=== PATIENT | female | born 1950 | race Caucasian/White ===

== ENCOUNTER → 2017-05-30 10:34 | Outpatient (CLI) | payer OTHER | END | disposition home or self-care (01) | LOC: D.MRI 10:34 | DX: M25.562 Pain in left knee (principal) ==

== ENCOUNTER → 2019-11-29 08:31 | Outpatient (CLI) | payer OTHER | END | disposition home or self-care (01) | LOC: D.HCCECHO 08:31 | PROVIDERS: ATTEND Internal Medicine Cardiovascular Disease | DX: I25.10 Atherosclerotic heart disease of native coronary artery without angina pectoris (principal); I20.9 Angina pectoris, unspecified ==

== ENCOUNTER 2019-12-12 06:56 | Day surgery (SDC) | payer OTHER ==
[~2019-12-12] VITALS: Ht 170.2 cm; Wt 106.9 kg
--- NOTE | ~2019-12-12 | HEMODYNAMI ---
PATIENT:MERCEDES JORDAN MEDICAL RECORD: [id number] : 50 LOCATION:[facility] ADMISSION DATE: 12/12/19 Generatedon:12/12/20199:04 Patient name: MERCEDES JORDAN Patient #: [id number] SSN: [id number] : 1950 Date of study: 12/12/2019 Page: Of Hemodynamic Procedure Report Patient Data Patient Demographics Procedure consent was obtained First Name: MERCEDES Gender: Female Last Name: NIKKI : 1950 [facility] Initial: ANTOINE Age: 69 year(s) Patient #: [id number] Race: SSN: [id number] Additional ID: [id number] Contact details Address: [address] [place] [address] State: [place] City: [place] Zip code: [address] Past Medical History Allergies Allergen Reaction Date Comments Reported Other allergy 12/12/2019 NORCO, OXYBUTYNIN Admission Admission Data Admission Date: 12/12/2019 Admission Time: 6:56 Arrival Date: 12/12/2019 Arrival Time: 0:00 Admit Source: Other Insurance Payor: Private health insurance HIC #: [id number] Height (in.): 67 BSA: 2.17 (m2) Height (cm.): 170.18 BMI: 36.96 (kg/m2) Weight (lbs.): 236 Weight (kg.): 107.05 Lab Results Lab Result Date: 12/12/2019 Lab Result Time: 0:00 Biochemistry Name Units Result Min Max BUN mg/dl 36 --(----)-* 7 18 eGFR ml/min 43 *-(----)-- 90 120 NONAFRICAN CBC Name Units Result Min Max Hematocrit % 51.8 --(---*)-- 42 54 Hemoglobin g/dl 17.4 --(---*)-- 13.5 17.5 Procedure Procedure Types Cath Procedure Diagnostic Procedure LHC LHC w/Coronaries Sedation Charges Moderate Sedation up to 15 minutes Procedure Description Procedure Date Procedure Date: 12/12/2019 Procedure Start Time: 8:51 Procedure End Time: 9:03 Procedure Staff Name Function Malcolm Avila MD Performing Physician Elieser Feliz RN Nurse Ruth Hernandez RT Scrub Gabriela Mathur RT Monitor Procedure Data Cath Procedure Fluoroscopy Diagnostic fluoroscopy Total fluoroscopy Time: 3.1 time: 3.1 min min Diagnostic fluoroscopy Total fluoroscopy dose: 759 dose: 759 mGy mGy Contrast Material Contrast Material Type Amount (ml) Isovue 370 57 Entry Location Entry Primary Successful Side Size Upsize Upsize Entry Closure Polanco ccessful Closure Location (Fr) 1 (Fr) 2 (Fr) Remarks Device Remarks Radial Right 6 Fr Mechanical artery Short Compression Estimated blood loss: 5 ml Diagnostic catheters Device Type Used For End Catheter Placement DIAGNOSTIC Byron 110cm 5 Procedure Fr catheter ([id number]) Procedure Complications No complications Procedure Medications Medication Administration Route Dosage Oxygen etCO2 Nasal cannula 2 l/min Lidocaine 2% added to field 20 Heparin Flush Bag added to field 2 bags (1000units/500ml NS) 0.9% NaCl I.V. 100 ml/hr Zofran I.V. 4 mg Versed I.V. 2 mg Fentanyl I.V. 50 mcg Radial Cocktail I.A. 1 syringe (Verapamil 2mg/Nitro 400mcg/Heparin 1500units) Versed I.V. 1 mg Fentanyl I.V. 50 mcg Hemodynamics Rest BSA: 2.17 (m2) HGB: 17.4 (g/dl) O2 Consumption: Estimated: 220.6 (ml/min) O2 Con sumption indexed: Estimated:101.66 (ml/min/m) Heart Rate: 94 (bpm) Pressure Samples Time Site Value (mmHg) Purpose Heart Use Rate(bpm) 8:53 LV 149/-10,1 Snapshot 96 Gradients Valve Time Site Site Mean SEP/DFP Peak To Heart Use 1 2 (mmHg) (sec/min) Peak Rate (mmHg) (bpm) Aortic 8:54 LV AO 97 Snapshots Pre Cath Intra NCS Post Cath Vital Signs Time Heart Resp SPO2 etCO2 NIBP (mmHg) Rhythm Pain Sedation Rate (ipm) (%) (mmHg) Status Level (bpm) 8:42:48 93 16 94 26.9 169/99(121) NSR 0 (11) 10(A) , No pain 8:47:08 87 15 93 0 111/73(82) NSR 0 (11) 9(A) , No pain 8:52:51 92 13 94 0 155/95(128) NSR 0 (11) 9(A) , No pain 9:58:45 95 17 95 36.6 135/83(110) NSR 0 (11) 10(A) , No pain 9:03:09 98 9 90 46.3 149/86(110) NSR 0 (11) 9(A) , No pain Medications Time Medication Route Dose Verified Delivered Reason Notes Effectiveness by by 8:43:57 Oxygen etCO2 2 l/min Malcolm Buffie used for Nasal Austin Feliz RN procedure cannula 8:44:06 Lidocaine 2% added 20ml Malcolm Malcolm for local to vial Austin Avila MD anesthetic field 8:44:13 Heparin Flush added 2 bags Malcolm Malcolm used for Bag to Austin Avila MD procedure (1000units/500ml field NS) 8:44:22 0.9% NaCl I.V. 100 Malcolm Buffie Per ml/hr Austin Feliz RN physician 8:44:34 Zofran I.V. 4 mg Malcolm Buffie Per Austin Feliz RN physician 8:48:14 Versed I.V. 2 mg Malcolm Buffie for sedation Austin Feliz RN 8:48:21 Fentanyl I.V. 50 mcg Malcolm Buffie for sedation Austin Feliz RN 8:52:36 Radial Cocktail I.A. 1 Malcolm Malcolm for (Verapamil syringe Austin Avila MD vasodilation 2mg/Nitro 400mcg/Heparin 1500units) 8:52:41 Versed I.V. 1 mg Malcolm Malcolm for sedation Austin Avila MD 8:52:45 Fentanyl I.V. 50 mcg Malcolm Malcolm for sedation Austin Avila MD Procedure Log Time Note 8:04:23 Arrival Date: 12/12/2019 12:00:00 AM 8:04:24 Admit Source: Other 8:05:05 Insurance Payor : Private health insurance 8:05:15 Informed consent obtained and on chart 8:05:37 Patient Height : 67 inches 8:05:45 Patient Weight : 236 lbs 8:08:43 Diagnostic Cath Status : Elective 8:08:55 Procedure Status Elective Heart Cath (OP). 8:08:58 Time tracking: Regular hours (M-F 7:00 - 5:00) 8:09:03 Plan of Care:Hemodynamics will remain stable., Cardiac rhythm will remain stable., Comfort level will be maintained., Respiratory function will remain adequate., Patient/ family verbilizes understanding of procedure., Procedure tolerated without complication., Recovers from procedure without complications.. 8:09:11 H&P Date Dictated: 12/05/2019 Within 30 days and on chart.. 8:09:13 Pre-procedure instructions explained to patient. 8:09:13 Pre-op teaching completed and patient verbalized understanding. 8:09:15 Family unavailable. 8:09:17 Patient NPO since Midnight. 8:09:43 Patient allergic to Other allergyNORCO, OXYBUTYNIN 8:09:55 Stress Test: yes; abnormal INFERIOR 8:09:57 Alarms reviewed by R. N. 8:09:58 Sharps counted by scrub and verified by R.N. 8:12:28 Lab Result : Hemoglobin 17.4 g/dl 8:12:28 Lab Result : Hematocrit 51.8 % 8:18:38 Elieser Feliz RN sent for patient. Start room use. 8:23:41 ACC Patient presents with Stable Angina CCS Anginal Class 2--Slight limitation of ordinary activity. 8:23:48 Patient received from Pre/Post Procedure Room to CCL 2 Alert and oriented. Tansferred to table in Supine position. 8:23:52 Warm blankets applied, and brianna hugger turned on for patient comfort. 8:23:53 Correct patient and procedure confirmed by team. 8:23:54 ECG and BP/O2 sat monitors applied to patient. 8:23:57 Is the patient allergic to Iodine/contrast media? No. 8:24:22 Lab results completed and on chart. 8:40:48 Lab Result : eGFR NONAFRICAN 43 ml/min 8:40:48 Lab Result : BUN 36 mg/dl 8:41:20 Vital chart was started 8:42:09 Baseline sample Acquired. 8:42:20 Rhythm: sinus tachycardia 8:42:45 Full Disclosure recording started 8:42:53 Was the patient premedicated? No 8:42:54 Is patient on blood thinner?No 8:42:55 Vital chart was stopped 8:43:10 Patient diabetic? No. 8:43:13 Patient not . Patient is over age 55. 8:43:15 ----Pre-sedation anethsthesia assessment.---- 8:43:18 Previous problem with sedation/anesthesia? No ? 8:43:19 Snore? Yes 8:43:21 Sleep apnea? No 8:43:22 Deviated septum? No 8:43:24 Opens mouth fully? Yes 8:43:25 Sticks out tongue? Yes 8:43:27 Airway obstruction? No ? 8:43:28 Dentures? No ? 8:43:31 Pre procedure: right dorsailis pedis pulse 2+ Normal; easily identifiable; not easily obliterated 8:43:35 Modified Austin's test Ulnar < 7 seconds 8:43:38 Vital chart was started 8:43:40 Patient pain scale 0/10 ?. 8:43:45 IV patent on arrival in left hand with 0.9% NaCl at O. 8:43:51 Right Radial & Right Groin area was prepped with chlora-prep and draped in sterile fashion 8:43:54 Use device set Radial Dx or PCI 8:43:56 ACIST Syringe (29729) opened to sterile field. 8:43:57 Oxygen 2 l/min etCO2 Nasal cannula was administered by Elieser Feliz RN; used for procedure; Verbal order read back and verified. 8:43:57 Medline Cath Pack ([id number]) opened to sterile field. 8:43:57 Bag Decanter (2002) opened to sterile field. 8:43:58 ACIST Hand Control (13597) opened to sterile field. 8:43:58 ACIST Manifold (85508) opened to sterile field. 8:44:01 MBrace Wrist Support ([id number]) opened to sterile field. 8:44:01 NEEDLE Cook 21G 4cm Radial ([id number]) opened to sterile field. 8:44:03 EMERALD Guide Wire (502-973) opened to sterile field. 8:44:04 SHEATH 6FR RAIN (3642894) opened to sterile field. 8:44:06 Lidocaine 2% 20ml vial added to field was administered by Malcolm Avila MD; for local anesthetic; Verbal order read back and verified. 8:44:13 Heparin Flush Bag (1000units/500ml NS) 2 bags added to field was administered by Malcolm Avila MD; used for procedure; Verbal order read back and verified. 8:44:22 0.9% NaCl 100 ml/hr I.V. was administered by Elieser Feliz RN; Per physician; Verbal order read back and verified. 8:44:34 Zofran 4 mg I.V. was administered by Elieser Feliz RN; Per physician; Verbal order read back and verified. 8:46:43 Vital chart was stopped 8:47:51 --------ALL STOP TIME OUT------ 8:47:52 Final Timeout: patient, procedure, and site verified with staff and physician. All members of the team are in agreement. 8:47:54 Right Radial & Right Groin site verified by team. 8:47:58 Fire Safety Assessment: A--An alcohol-based skin anteseptic being used preoperatively., C--Open oxygen or nitrous oxide is being used., D--An ESU, laser, or fiber-optic light is being used. 8:48:03 Physical assessment completed. ASA score P 2 - A patient with mild systemic disease as per Malcolm Avila MD. 8:48:07 3b) 30-44 Moderately reduced kidney function. 8:48:10 Maximum allowable contrast dose (3.7 X eGFR X 0.75)119 ml. 8:48:14 Versed 2 mg I.V. was administered by Elieser Feliz RN; for sedation; Verbal order read back and verified. 8:48:14 Sedation plan: IV Moderate Sedation Medication:Versed, Fentanyl 8:48:21 Fentanyl 50 mcg I.V. was administered by Elieser Feliz RN; for sedation; Verbal order read back and verified. 8:48:45 Vital chart was started 8:50:21 Procedure started. 8:51:35 Local anesthetic to right radial artery with Lidocaine 2% by Malcolm Avila MD.INITIAL ACCESS ONLY 8:52:00 A 6 Fr Short sheath was inserted into the Right Radial artery 8:52:36 Radial Cocktail (Verapamil 2mg/Nitro 400mcg/Heparin 1500units) 1 syringe I.A. was administered by Malcolm Avila MD; for vasodilation; Verbal order read back and verified. 8:52:41 Versed 1 mg I.V. was administered by Malcolm Avila MD; for sedation; Verbal order read back and verified. 8:52:45 Fentanyl 50 mcg I.V. was administered by Malcolm Avila MD; for sedation; Verbal order read back and verified. 8:52:51 A DIAGNOSTIC Byron 110cm 5 Fr catheter ([id number]) was advanced over the wire and used for Procedure. 8:53:16 LV gram done using ANTONIO 8:53:19 Injector settings: Ml/sec: 5, Volume: 15, 8:53:40 LV hemodynamics recorded. 8:54:05 EF : 55 % 8:54:39 LCA angiography performed. 8:54:42 Injector settings: Ml/sec: 3, Volume: 6, 8:58:37 RCA angiography performed. 8:58:39 Injector settings: Ml/sec: 3, Volume: 6, 8:59:13 ACCDominant side:Left 8:59:15 Catheter removed. 8:59:53 ZEPHYR REGULAR TR BAND ([id number]) opened to sterile field. 9:00:03 Sheath removed intact; hemostasis achieved with Mechanical Compression to the Right Radial artery. 9:00:05 Procedure ended.(Physican Out) 9:00:40 Fluoroscopy time 03.10 minutes. 9:00:45 Fluoroscopy dose: 759 mGy 9:00:45 Flurop Dose total: 759 9:00:50 Dose Area Product 60754 mGy/cm. 9:00:53 Contrast amount:Isovue 370 57ml. 9:00:55 Maximum allowable dose exceeded? No. 9:00:56 Sharps counted by scrub and verified by R.N. 9:01:01 Post Procedure Pulses reassessed and unchanged 9:01:05 Post procedure: right dorsailis pedis pulse 2+ Normal; easily identifiable; not easily obliterated. 9:01:07 Post-procedure physical assessment completed. ASA score P 2 - A patient with mild systemic disease as per Malcolm Avila MD. 9:01:12 Post procedure rhythm: unchanged. 9:01:15 Estimated blood loss: 5 ml 9:01:16 Post procedure instruction explained to patient.Patient verbalizes understanding. 9:01:17 Patient needs reinforcement of post procedure teaching. 9:01:35 Procedure type changed to Cath procedure, Diagnostic procedure, LHC, [facility] w/Coronaries, Sedation Charges, Moderate Sedation up to 15 minutes 9:02:33 Procedure and supply charges have been captured, reviewed, submitted and are correct. 9:02:37 Procedure Complication : No complications 9:02:55 [facility] Findings: mild to moderate CAD (<70%) 9:02:56 Operative report dictated upon procedure completion. 9:02:56 See physician's report for complete and final results. 9:02:59 Report given to Pre/Post Procedure Room. 9:03:02 Patient transfered to Pre/Post Procedure Room with Stretcher. 9:03:04 Procedure ended. 9:03:04 Full Disclosure recording stopped 9:03:20 End room use (Document Last) 9:04:04 End room use (Document Last) 9:04:30 End room use (Document Last) 9:04:51 Vital chart was stopped Device Usage Item Name Manufacture Quantity Catalog Hospital Part Current Minima l Lot# / Number Charge Number Stock Stock Serial# Code ACIST Acist 1 04936 874544 691584 [id number] 20 Syringe Medical (63401) Systems Inc Medline Medline 1 [id number] 62579 583995 5 Cath Pack ([id number]) Bag Microtek 1 2001S 838073 24871 531886 5 Decanter Medical Inc. () ACIST Hand Acist 1 83244 630792 897500 942585 5 Control Medical (84218) Systems Inc ACIST Acist 1 58677 632403 710299 112695 5 Manifold Medical (89605) Systems Inc MBrace Advanced 1 [id number] 722459 79044 609976 5 Wrist Vascular Support Dynamics ([id number]) NEEDLE Cook [employer] Medical 1 [id number] 302911 538309 371218 5 21G 4cm Radial (Z32273) EMERALD Cardinal 1 502-455 943986 166920 793333 5 Guide Wire Health (525-455) SHEATH 6FR Cardinal 1 [id number] 393684 6983653 187094 5 [facility] (2596267) DIAGNOSTIC Terumo 1 65-4293 766823 232757 006953 5 Byron 110cm 5 Fr catheter (759327) ZEPHYR Cardinal 1 876373 308980 6338996 157128 5 REGULAR TR Health BAND (457080) Signature Audit Onley Stage Time Signature Unsigned Intra-Procedure 12/12/2019 Gabriela Mathur 9:04:04 AM RT(R) Intra-Procedure 12/12/2019 Elieser Feliz RN 9:04:31 AM Intra-Procedure 12/12/2019 Malcolm Avila MD 9:04:48 AM Signatures Performing Physician : Signature : Malcolm Avila MD Date : Time : Nurse : Elieser Feliz RN Signature : Date : Time : Monitor : Gabriela Mathur Signature : RT Date : Time : [address] [place] [place] [address]
[2019-12-12] MEDS ORDERED: DITROPAN XL 1010 MG PO (07:26)
[2019-12-12] MEDS ORDERED: CYMBALTA30 MG PO (07:27)
[2019-12-12] MEDS ORDERED: ESTRACE 0.5 MG0.5 MG PO (07:27)
[2019-12-12] MEDS ORDERED: LEVOTHYROXINE50 MCG PO (07:27)
[2019-12-12] MEDS ORDERED: PROTONIX40 MG PO (07:28)
[2019-12-12] MEDS ORDERED: ZOCOR20 MG PO (07:28)
[2019-12-12] MEDS ORDERED: MOBIC7.5 MG PO (07:28)
[2019-12-12] MEDS ORDERED: DYRENIUM50 MG PO (07:29)
[2019-12-12] MEDS ORDERED: KLOR-CON 1010 MEQ PO (07:29)
[2019-12-12 07:49] VITALS: BP 150/92; Ht 170.2 cm; Wt 106.9 kg
[2019-12-12 08:04] LABS: BASOPHILS 0.4 % (0-2); EOSINOPHILS 2.8 % (0-7); HEMATOCRIT 51.8 % (36.0-48.0); HEMOGLOBIN 17.4 g/dL (12-16); IMMATURE GRANULOCYTES 0.3 % (0-5); MCH 31.4 pg (26.0-34.0); MCHC 33.6 g/dL (31.0-37.0); MCV 93.5 fL (80.0-100.0); MEAN PLATELET VOLUME 9.4 fL (7.4-10.4); MONOCYTES 7.9 % (2-11); NEUTROPHILS 60.6 % (40-80); PLATELET COUNT 216 10x3/uL (130-400); RBC 5.54 10x6/uL (4.00-5.40); RDW 13.8 % (11.5-14.5); WBC 9.1 10x3/uL (4.8-10.8)
[2019-12-12 08:30] LABS: ANION GAP 12.7 mmol/L (8-16); CALCIUM 9.1 mg/dL (8.5-10.1); CARBON DIOXIDE 25.1 mmol/L (21.0-32.0); CHOL - HDL RATIO 3.8 ratio (2.3-4.1); CREATININE - SERUM 1.3 mg/dL (0.6-1.3); LDL-HDL RATIO 2.3 ratio (1.5-3.5); POTASSIUM - SERUM 3.8 mmol/L (3.5-5.1)
--- NOTE | 2019-12-12 09:24 | NUR ---
PT RECEIVED VIA STRETCHER FROM MACHINE CLOTH MEASURER FOR RECOVERY. PT SLEEPY, DENIES PAIN OR DISCOMFORT. IV PATENT INFUSING VIA ORDERS. PT PLACED ON CARDIAC MONITORS AND O2 VIA NC AT 2L. HR RATE 95, BP 134/85, RR 11, SAT 92. ZYPHER BAND AND IMMOBILIZER IN PLACE, NO S/S HEMATOMA NOTED. ARM PINK AND WARM, CAP REFILL BRISK. PT INSTRUCTED NO TO USE ARM, SHE VERBALIZED UNDERSTANDING. CALL LIGHT IN REACH, DAUGHTER AT BS.
--- NOTE | 2019-12-12 09:46 | NUR ---
PT RESTING COMFORTALBY, DENIES PAIN OR NEEDS. PO FLUIDS GIVEN. ZBAND AND IMMOBILIZER IN PLACE, NO S/S HEMATOMA OR BLEEDING NOTED. CALL LIGHT IN REACH. VSS AT PRESENT. DAUGHTER AT BS
--- NOTE | 2019-12-12 10:30 | NUR ---
4CC AIR REMOVED FROM Z BAND, NO BLEEDING OR S/S HEMATOMA NOTED. HOB ELEVATED, SANDWICH TRAY SERVED. O2 REMOVED, SAT 94 ON ROOM AIR. CALL LIGHT IN REACH.
--- NOTE | 2019-12-12 11:03 | NUR ---
3 ADD'L CC AIR REMOVED FROM Z BAND, NO BLEEDING. PT TOLERATING PO SOLIDS AND FLUIDS W/O N/V. PT DENIES NEEDS AT THIS TIME. CALL LIGHT IN REACH.
--- NOTE | 2019-12-12 11:30 | NUR ---
DISCHARGE INSTRUCTIONS REVIEWED W PT AND DAUGHTER, BOTH VERBALIZED UNDERSTANDING. IV REMOVED W CATH INTACT, MONITORS REMOVED. ZBAND AND IMMOBILIZER IN PLACE, PT UP TO DRESS WITH ASSIST FOR DISCHARGE
--- NOTE | 2019-12-12 11:49 | NUR ---
ZBAND AND REMAINING AIR REMOVED, NO BLEEDING OR S/S HEMATOMA NOTED. 2X2 AND SM TEGADERM DRESSING APPLIED. PT AMBULATED TO BR, VOIDING W/O DIFFICULITY. PT THEN DISCHARGE VIA WC TO DAUGHTER WAITING IN PRIVATE VEHICLE. PT HAD ALL BELONGINGS AND DISCHARGE PAPERWORK
== END 2019-12-12 11:50 | disposition home or self-care (01) ==
LOC: D.CATH 06:56
PROVIDERS: ATTEND Internal Medicine Cardiovascular Disease
DX: I20.9 Angina pectoris, unspecified (principal); R94.39 Abnormal result of other cardiovascular function study; R06.02 Shortness of breath

== ENCOUNTER → 2020-08-03 11:39 | Outpatient (CLI) | payer OTHER ==
[2019-12-12 07:49] VITALS: BMI 36.9
[~2020-08-03 11:39] MED LIST: CYMBALTA30 MG PO; DITROPAN XL 1010 MG PO; DYRENIUM50 MG PO; ESTRACE 0.5 MG0.5 MG PO; KLOR-CON 1010 MEQ PO; LEVOTHYROXINE50 MCG PO; MOBIC7.5 MG PO; PROTONIX40 MG PO; ZOCOR20 MG PO
== END | disposition home or self-care (01) ==
LOC: D.LAB 11:39
PROVIDERS: ATTEND Family Medicine
DX: Z11.52 Encounter for screening for COVID-19 (principal)

== ENCOUNTER → 2020-08-05 13:43 | Outpatient (CLI) | payer OTHER ==
[2019-12-12 07:49] VITALS: BMI 36.9
== END | disposition home or self-care (01) ==
LOC: D.RT 13:30
PROVIDERS: ATTEND Family Medicine
DX: R06.00 Dyspnea, unspecified (principal)